=== PATIENT | male | born 1995 ===

== ENCOUNTER 2019-06-01 15:15 | Emergency (ER) | payer BC ==
--- NOTE | 2019-06-01 15:18 | UC ---
Ear Complaint HPI - HPI Summary HPI Summary: 23 yo male presents with cold symptoms. He tells me that for the last 4-5 days he has been having "cold symptoms" consisting of sinus congestion, b/l ear pain , and occasional non-productive cough. Over the last day has had increased LEFT ear pain and noticed decreased hearing in that ear. Has been taking mucinex OTC with no relief. Denies fever, chills. - History of Current Complaint Stated Complaint: EAR PAIN Time Seen by Provider: 06/01/19 15:18 Hx Obtained From: Patient Onset/Duration: Gradual Onset Severity Initially: Mild Severity Currently: Mild Pain Intensity: 3 Pain Scale Used: 0-10 Numeric - Allergies/Home Medications Allergies/Adverse Reactions: Allergies Allergy/AdvReac Type Severity Reaction Status Date / Time No Known Allergies Allergy Verified 06/01/19 15:40 PMH/Surg Hx/FS Hx/Imm Hx - Additional Past Medical History Additional PMH: gynecomastia - Surgical History Surgical History: Yes Other Surgical History: cystoscopy. mastectomy d/t gynecomastia - Family History Known Family History: Positive: None - Social History Lives: With Family Alcohol Use: None Substance Use Type: None Smoking Status (MU): Never Smoked Tobacco Review of Systems All Other Systems Reviewed And Are Negative: No Constitutional: Positive: Negative Skin: Positive: Negative Eyes: Positive: Negative ENT: Positive: Ear Ache, Nasal Discharge, Sinus Congestion, Sinus Pain/ Tenderness Respiratory: Positive: Negative Cardiovascular: Positive: Negative Gastrointestinal: Positive: Negative Neurovascular: Positive: Negative Neurological: Positive: Negative Psychological: Positive: Negative Physical Exam - Summary Physical Exam Summary: GENERAL: NAD. WDWN. No pain distress. SKIN: No rashes, sores, lesions, or open wounds. HEENT: Head: AT/NC Eyes: EOM intact. Conjunctiva clear without inflammation or discharge. Ears: Hearing grossly normal. LEFT TM with mild erythema and bulging. No canal edema or drainage. RIGHT TM WNL and intact. Nose: Nasal mucosa pink and moist with clear rhinorrhea. NTTP maxillary and frontal sinus. Throat: Posterior oropharynx without exudates, erythema, or tonsillar enlargement. Uvula midline. NECK: Supple. Nontender. No lymphadenopathy. CHEST: CTAB. No r/r/w. No accessory muscle use. Breathing comfortably and in no distress. CV: RRR. Without m/r/g. Pulses intact. NEURO: Alert. PSYCH: Age appropriate behavior. Triage Information Reviewed: Yes Vital Signs: Vital Signs: Temp Pulse Resp BP Pulse Ox 98.0 F 72 18 131/65 95 06/01/19 15:40 06/01/19 15:40 06/01/19 15:40 06/01/19 15:40 06/01/19 15:40 Vital Signs Reviewed: Yes Ear Complaint Course/Dx - Course Course Of Treatment: Otitis media - Differential Dx/Diagnosis Provider Diagnosis: Otitis media Discharge ED - Sign-Out/Discharge Documenting (check all that apply): Patient Departure All imaging exams completed and their final reports reviewed: No Studies - Discharge Plan Condition: Stable Disposition: HOME Prescriptions: Amoxicillin PO (*) [Amoxicillin 875 MG (*)] 875 mg PO BID #14 tab Fluticasone NASAL SPRAY 50MCG* [Flonase NASAL SPRAY 50MCG*] 2 spray BOTH NARES DAILY #1 btl Patient Education Materials: Ear Infection (ED) Referrals: No Primary Care Phys,NOPCP [Primary Care Provider] - Additional Instructions: If you develop a fever, shortness of breath, chest pain, new or worsening symptoms - please call your PCP or go to the ED immediately. - Billing Disposition and Condition Condition: STABLE Disposition: Home - Attestation Statements Provider Attestation: Per institutional requirements, I have reviewed the chart, however, I was not consulted specifically or made aware of this patient by the midlevel provider. I did not personally evaluate, interact with , or disposition this patient.
== END 2019-06-01 15:40 | disposition home or self-care (01) ==
LOC: UCEAST 15:15
DX: H66.93 Otitis media, unspecified, bilateral (principal); R05 Cough; R09.81 Nasal congestion; R09.89 Other specified symptoms and signs involving the circulatory and respiratory systems
CPT/HCPCS: 99202; G0463